=== PATIENT | male | born 2000 | race Caucasian/White ===

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

== ENCOUNTER 2020-03-07 13:59 | Emergency (ER) | payer MEDICAID ==
[~2020-03-07] VITALS: Ht 182.9 cm; Wt 69.4 kg
[2020-03-07 14:05] VITALS: BP 149/78; Ht 182.9 cm; Wt 69.4 kg
== END 2020-03-07 18:43 | disposition home or self-care (01) ==
LOC: ED 13:59
DX: S61.224A Laceration with foreign body of right ring finger without damage to nail, initial encounter (principal); W34.010A Accidental discharge of airgun, initial encounter; Y93.89 Activity, other specified; Y92.89 Other specified places as the place of occurrence of the external cause; Y99.8 Other external cause status
CPT/HCPCS: J2001; Q0092